=== PATIENT | male | born 1985 | race Caucasian/White ===

== ENCOUNTER 2017-01-10 20:18 | Emergency (ER) | payer MEDICAID ==
[2017-01-10 20:24] VITALS: BP 136/74; PULSE 69; RESP 18; TEMP 98.1; O2SAT 97
--- NOTE | 2017-01-10 21:24 | EDPHY ---
H & P Stated Complaint: tripped down the stairs, c/o left foot pain Source: Patient Exam Limitations: No limitations - Personal History Current Tetanus Diphtheria and Acellular Pertussis (TDAP): No - Medical/Surgical History Hx Asthma: No Hx Chronic Respiratory Disease: No Hx Diabetes: No Hx Cardiac Disease: No Hx Renal Disease: No Hx Cirrhosis: No Hx Alcoholism: No Hx HIV/AIDS: No Hx Splenectomy or Spleen Trauma: No Other PMH: dental surgery, schizophrenia, has a brain tumor non operable SEIZURE X1 - Social History Smoking Status: Current some day smoker HPI/ROS: CHIEF COMPLAINT: Fall, foot pain HISTORY OF PRESENT ILLNESS: Patient complains of pain in the left after fall late last night. He says he slipped on the last 2 steps of a single flight of stairs. He did not strike his head or lose consciousness. He said his left foot inverted. Moderate to severe pain. He attempted to wait to see if improved but did not throughout the course of the day. Worse with weight-bearing. No numbness or tingling. No radiating pain. No pain in the right calcaneus, ankle, umana or proximal fibula. No other associated complaints or modifying factors. ESTABLISHED ORTHOPEDIST: None REVIEW OF SYSTEMS: Ten systems reviewed and are negative unless otherwise noted in the HPI PAST MEDICAL HISTORY: Previous left great toe fracture PAST SURGICAL HISTORY: None SOCIAL HISTORY: Lives independently here in [place] FAMILY HISTORY: Noncontributory EXAMINATION General Appearance: Alert, no distress Cardiovascular: Pulses normal throughout. Symmetric DP and PT pulses 2+ Brisk cap refill Neurological: A&O, sensory symmetric, strength symmetric. No footdrop. Pulses intact distally. Skin: Warm and dry, no rash. No lacerations abrasions or contusions Extremities: Tenderness over the distal left 1st metatarsal near the MTP joint. No crepitus. No deformity. No tenderness of the left midfoot, left ankle, left calcaneus. Neurovascular intact distally. No tenderness of the left proximal fibula. Psychiatric: Mood and affect normal DIFFERENTIAL DIAGNOSES: Including but not limited to fracture, sprain, strain, dislocation, hematoma, contusion MDM: 8:45 p.m. Mechanical fall with left foot pain near the distal 5th metatarsal. Neurovascular intact. No calcaneus injury. X-rays pending. 9:05 p.m. X-ray as interpreted by me without the aid of the radiologist reveals no acute fracture dislocation. 9:10 p.m. I attempted re-evaluated the patient but he was not in the room. I was notified by charge nurse that the patient left without treatment completed. He did not notify anyone but simply walked out of the emergency department. ED Precautions: Worsening pain. Erythema, edema, cyanosis, pallor, paresthesia or anesthesia. SUPERVISION: This patient was independently evaluated without direct examination by the attending physician. Case was discussed with attending physician. (Mahad Haro) Constitutional: Initial Vital Signs Temperature (C) 98.1 F 01/10/17 20:21 Heart Rate 69 01/10/17 20:21 Respiratory Rate 18 01/10/17 20:21 Blood Pressure 136/74 H 01/10/17 20:21 O2 Sat (%) 97 01/10/17 20:21 O2 Delivery Mode Room Air Allergies/Adverse Reactions: benztropine mesylate [From Cogentin] Allergy (Mild, Verified 12/12/15 16:07) Rash Home Medications: Medication Instructions Recorded NK [No Known Home Meds] 04/12/14 Medical Decision Making ED Course/Re-evaluation: I did not see this patient while he was in the emergency department. However his care was discussed with the PA while the patient was in the department. I agree with treatment plan and management (Carlos Healy) Departure - Departure Disposition: Home, Routine, Self-Care Clinical Impression: Foot sprain Qualifiers: Encounter type: initial encounter Laterality: left Qualified Code(s): S93.602A - Unspecified sprain of left foot, initial encounter Condition: Good Instructions: Foot Sprain (ED) Referrals: NONE *PRIMARY CARE P,. [Primary Care Provider] - As per Instructions John Casillas MD [Medical Doctor] - As per Instructions
== END 2017-01-10 21:08 | disposition home or self-care (01) ==
DX: S93.602A Unspecified sprain of left foot, initial encounter (principal); F17.200 Nicotine dependence, unspecified, uncomplicated; W01.0XXA Fall on same level from slipping, tripping and stumbling without subsequent striking against object, initial encounter; Y92.89 Other specified places as the place of occurrence of the external cause; Y99.8 Other external cause status; Y93.89 Activity, other specified

== ENCOUNTER 2017-08-21 16:25 | Emergency (ER) | payer MEDICAID ==
--- NOTE | 2017-08-21 16:49 | EDPHY ---
H & P Stated Complaint: L trapezius pain after doing pull ups;painful x 2 wks Time Seen by Provider: 08/21/17 16:43 HPI/ROS: CHIEF COMPLAINT: Left trapezius pain HISTORY OF PRESENT ILLNESS: The patient presents the ED with complaints of left trapezius muscle pain for the past 2 days. The patient reports he is active with weight lifting and reportedly exacerbated his trapezius pain after doing pull-ups today. He denies any acute numbness or weakness. The patient does have a history of pituitary tumor. He has no complaints of acute headache or other concerns. REVIEW OF SYSTEMS: A comprehensive 10 point review of systems is otherwise negative aside from elements mentioned in the history of present illness. Source: Patient Exam Limitations: No limitations - Personal History Current Tetanus Diphtheria and Acellular Pertussis (TDAP): Yes - Medical/Surgical History Hx Asthma: No Hx Chronic Respiratory Disease: No Hx Diabetes: No Hx Cardiac Disease: No Hx Renal Disease: No Hx Cirrhosis: No Hx Alcoholism: No Hx HIV/AIDS: No Hx Splenectomy or Spleen Trauma: No Other PMH: dental surgery, schizophrenia, has a brain tumor non operable SEIZURE X1 - Social History Smoking Status: Current every day smoker - Physical Exam Exam: General Appearance: Alert, no distress Head: Atraumatic Eyes: Pupils equal, round, reactive ENT, Mouth: No hemotympanum, no oral trauma Neck: Tenderness to palpation left trapezius muscle Respiratory: No chest wall tender, no subcutaneous air, lungs clear bilaterally Cardiovascular: Regular rate and rhythm Abdomen: Abdomen is soft and nontender, pelvis stable Skin: No lacerations, No abrasion Back: No midline T/L/S pain Extremities: Nontender, full range of motion Neurological: 5/5 strength all 4 extremities, normal sensory exam Constitutional: Initial Vital Signs Temperature (C) 37 C 08/21/17 16:30 Heart Rate 58 L 08/21/17 16:30 Respiratory Rate 16 08/21/17 16:30 Blood Pressure 136/87 H 08/21/17 16:30 O2 Sat (%) 98 08/21/17 16:30 O2 Delivery Mode Room Air Allergies/Adverse Reactions: benztropine [From Cogentin] Allergy (Mild, Verified 08/21/17 16:35) Rash Home Medications: Medication Instructions Recorded NK [No Known Home Meds] 08/21/17 Medical Decision Making ED Course/Re-evaluation: Examination is consistent with a myofascial strain. The patient was given ibuprofen and a lidocaine patch. He will be discharged home with customary aftercare instructions. Departure - Departure Disposition: Home, Routine, Self-Care Clinical Impression: Muscle strain Condition: Good Instructions: Musculoskeletal Pain (ED) Additional Instructions: 1. Take Ibuprofen or Motrin 600 mg by mouth three times a day. 2. Please use lidocaine patches. These are available [id number] at a drug store for management of your symptoms. Referrals: NONE *PRIMARY CARE P,. [Primary Care Provider] - As per Instructions
[2017-08-21] MEDS ORDERED: LIDOCAINE 4%/MENTHOL 1% PATCH TD ONE (16:54)
[2017-08-21] MEDS ORDERED: IBUPROFEN 600 MG TAB PO ONE (16:54)
[2017-08-21 17:26] VITALS: BP 142/73
[2017-08-21] MEDS ORDERED: PATCH REMOVAL 1 EA PATCH TD SCH (21:00)
== END 2017-08-21 17:26 | disposition home or self-care (01) ==
DX: S46.812A Strain of other muscles, fascia and tendons at shoulder and upper arm level, left arm, initial encounter (principal); F17.200 Nicotine dependence, unspecified, uncomplicated; X50.0XXA Overexertion from strenuous movement or load, initial encounter; Y99.8 Other external cause status; Y93.B2 Activity, push-ups, pull-ups, sit-ups

== ENCOUNTER → 2017-09-06 | Emergency (ER) | payer MEDICAID ==
[2017-09-06 15:58] VITALS: BP 137/83
== END | disposition left against medical advice (07) ==
DX: Z53.21 Procedure and treatment not carried out due to patient leaving prior to being seen by health care provider (principal)

== ENCOUNTER 2017-09-07 22:02 | Emergency (ER) | payer MEDICAID ==
[2017-09-07 22:13] VITALS: BP 129/70
--- NOTE | 2017-09-07 22:47 | EDPHY ---
H & P Stated Complaint: CP from risperidone since 2007, rash on ribs x2 weeks. Time Seen by Provider: 09/07/17 22:26 HPI/ROS: Chief Complaint: Chest pain, skin rash HPI: 31-year-old male with a history of nonspecified mental illness on risperidone is presenting complaining of several years of pain in his chest and several weeks of a rash in his groin in on his trunk. He states that he believes the chest pain is from the gynecomastia he has had from the psychiatric medications he has had in the past. He is wondering if we could remove some of the fatty tissue today. Patient states he has also been having a rash in his groin which has been present but not spreading for several weeks. Denies any lesions on his penis. No discharge. Rash is itchy. It is not on his palms or soles. He has not followed up with primary care Dermatology. ROS: 10 point Review of Systems is negative except as noted in the HPI. PMH: Mental illness Social History: Positive smoking, positive alcohol, Family History: non-contributory Physical Exam: Gen: Awake, Alert, No Distress HEENT: Nose: no rhinorrhea Eyes: PERRLA, EOMI Mouth: Moist mucosa Neck: Supple, no JVD Chest: Mild bilateral breast tenderness, no masses, no lesions, no erythema, lungs clear to auscultation Heart: S1, S2 normal, no murmur Abd: Soft, non-tender, no guarding Back: no CVA tenderness, no midline tenderness Ext: no edema, non-tender Skin: Patient has a confluent skin pigmentation changes in his groin. The patient also has a maculopapular rash on his trunk and shoulders. It is blanching. Is not tender. It is not itchy. Neuro: CN II-XII intact, Sensation grossly intact, Strength 5/5 in bilateral upper and lower extremities - Personal History Current Tetanus/Diphtheria Vaccine: No Current Tetanus Diphtheria and Acellular Pertussis (TDAP): No - Medical/Surgical History Hx Asthma: No Hx Chronic Respiratory Disease: No Hx Diabetes: No Hx Cardiac Disease: No Hx Renal Disease: No Hx Cirrhosis: No Hx Alcoholism: No Hx HIV/AIDS: No Hx Splenectomy or Spleen Trauma: No Other PMH: dental surgery, schizophrenia, has a brain tumor non operable SEIZURE X1 - Social History Smoking Status: Current some day smoker Constitutional: Initial Vital Signs Temperature (C) 36.7 C 09/07/17 22:08 Heart Rate 80 09/07/17 22:08 Respiratory Rate 16 09/07/17 22:08 Blood Pressure 129/70 H 09/07/17 22:08 O2 Sat (%) 92 09/07/17 22:08 O2 Delivery Mode Room Air Allergies/Adverse Reactions: benztropine [From Cogentin] Allergy (Mild, Verified 08/21/17 16:35) Rash Home Medications: Medication Instructions Recorded NK [No Known Home Meds] 09/07/17 Medical Decision Making ED Course/Re-evaluation: Patient presenting with chest wall pain for years and a rash is been going on for weeks. There are no acute exacerbations. No evidence acute emergent medical process or infectious process. Will discharge with referral for Dermatology an outpatient follow-up with primary care. Departure - Departure Disposition: Home, Routine, Self-Care Clinical Impression: Rash Condition: Good Instructions: Acute Rash (ED) Additional Instructions: Please follow up with a segregator and with [facility] in 3-4 days for further evaluation. Referrals: [facility],. [Clinic] - As per Instructions ABDULLAHI CORMIER [Medical Doctor] - As per Instructions
== END 2017-09-07 23:00 | disposition home or self-care (01) ==
DX: R21 Rash and other nonspecific skin eruption (principal); F17.200 Nicotine dependence, unspecified, uncomplicated